=== PATIENT | female | born 1990 | race African-American/Black ===

== ENCOUNTER 2020-07-29 11:58 | Emergency (ER) | payer OTHER ==
[~2020-07-29] VITALS: Ht 175.3 cm; Wt 54.0 kg
[2020-07-29 12:14] LABS: BILIRUBIN,URINE NEGATIVE (NEG); CLARITY,URINE CLEAR; COLOR,URINE YELLOW; NITRITE,URINE NEGATIVE (NEG); PROTEIN,URINE NEGATIVE (NEG-TRACE); UROBILINOGEN,URINE 0.2 mg/dL (0.2 mg/dL)
[2020-07-29 12:15] VITALS: BP 113/65
[2020-07-29 12:27] LABS: BACTERIA,URINE FEW /HPF (0-FEW); RBC,URINE 0 /HPF (0-2)
--- NOTE | 2020-07-29 14:49 | RAD ---
STUDY: US TRANSVAGINAL HISTORY: Tenderness to palpation at the left adnexa. COMPARISON: None. TECHNIQUE: Pelvic ultrasound was performed with a transvaginal probe. FINDINGS: The uterus measures 7.5 x 3.7 x 2.9 cm. The endometrial echo measures 0.8 cm in thickness. The right ovary measures 3.7 x 2.7 x 2.5 cm and the left ovary 2.7 x 2.2 x 1.7 cm. No focal uterine parenchymal abnormality. No fluid along the endometrial canal or endometrial hyperva scularity. Doppler flow is maintained to both ovaries. Several follicles on both the right and left. Small simpl e cyst or dominant follicle on the right measuring up to 1.7 cm. No complex cyst or mass. Free pelvic fluid noted which appears simple, image 3. IMPRESSION: Simple appearing free pelvic fluid is most likely physiologic given patient age. The uterus, endometr ium and both ovaries are within normal limits. Doppler flow is maintained to both ovaries. Electronically signed by: ZEKE DIAZ MD (07/29/2020 2:47 PM) [id number]
--- NOTE | 2020-07-29 14:53 | ED.ADGEN ---
Past Medical History Past Medical History: No Pertinent History Past Surgical History: Other Additional Past Surgical Histo: LEEP Smoking Status: Current Every Day Smoker Alcohol Use: Occasionally General Adult EDM: Chief Complaint: ABDOMINAL PAIN HPI: HPI: Patient is a 29 year old female who presents emergency department complaints of lower left quadrant abdominal pain is worse in the morning for the last 4 days. Patient states that her last menstrual cycle was on June 30, 2020. She is unsure if she is . She denies any nausea, vomiting, or diarrhea. She reports her last bowel movement was a few days ago, she denies any dysuria, hematuria, increased urinary frequency, foul-smelling urine, irregular vaginal discharge, vaginal odor, vaginal bleeding. She denies any back pain, abdominal pain, fever, cough, body aches, fatigue, or shortness of breath. She currently rates pain a 4 out of 10 on the pain scale, she states that the pain is worse with palpation and movement, the only thing that helps to relieve the pain is laying still. Review of Systems: Review of Systems: Complete ROS is negative unless otherwise noted in HPI. Allergies: Allergies: Allergies Coded Allergies Type Severity Reaction Last Updated Verified Sulfa (Sulfonamide Antibiotics) Allergy Unknown 07/29/20 Yes Physical Exam: PE: Constitutional: Well developed, well nourished, no acute distress, non-toxic appearance. [] HENT: Normocephalic, atraumatic, bilateral external ears normal, nose normal. [] Eyes: PERRLA, EOMI, conjunctiva normal, no discharge. [] Neck: Normal range of motion, no stridor. [] Cardiovascular:Heart rate regular rhythm Lungs & Thorax: Respirations even and unlabored, no retractions, no respiratory distress Abdomen: soft, lower left quadrant tenderness to palpation, no palpable mass, no rebound tenderness, no guarding, no suprapubic tenderness Back: No CVA tenderness Skin: Warm, dry, no erythema, no rash. [] Extremities: No cyanosis, ROM intact, no edema. [] Neurologic: Alert and oriented X 3, normal motor, normal sensory, no focal deficits noted. [] Psychologic: Affect normal, judgement normal, mood normal. [] Current Patient Data: Labs: Laboratory Tests Test 07/29/20 12:01 07/29/20 12:08 Urine Collection Type Unknown Urine Color Yellow Urine Clarity Clear Urine pH 7.0 (<5.0-8.0) Urine Specific [place] 1.010 (1.000-1.030) Urine Protein Negative mg/dL (NEG-TRACE) Urine Glucose (UA) Negative mg/dL (NEG) Urine Ketones (Stick) Negative mg/dL (NEG) Urine Blood Negative (NEG) Urine Nitrite Negative (NEG) Urine Bilirubin Negative (NEG) Urine Urobilinogen Dipstick 0.2 mg/dL (0.2 mg/dL) Urine Leukocyte Esterase Trace (NEG) Urine RBC 0 /HPF (0-2) Urine WBC 1-4 /HPF (0-4) Urine Squamous Epithelial Cells Mod /LPF Urine Bacteria Few /HPF (0-FEW) POC Urine HCG, Qualitative Hcg negative (Negative) Vital Signs: Vital Signs Date Time Temp Pulse Resp B/P (MAP) Pulse Ox O2 Delivery O2 Flow Rate FiO2 07/29/20 12:15 98.8 61 16 113/65 (81) 98 Room Air 98.8 EKG: EKG: [] Heart Score: C/O Chest Pain: No Radiology/Procedures: Radiology/Procedures: PROCEDURE: TRANSVAGINAL STUDY: US TRANSVAGINAL HISTORY: Tenderness to palpation at the left adnexa. COMPARISON: None. TECHNIQUE: Pelvic ultrasound was performed with a transvaginal probe. FINDINGS: The uterus measures 7.5 x 3.7 x 2.9 cm. The endometrial echo measures 0.8 cm in thickness. The right ovary measures 3.7 x 2.7 x 2.5 cm and the left ovary 2.7 x 2.2 x 1.7 cm. No focal uterine parenchymal abnormality. No fluid along the endometrial canal or endometrial hypervascularity. Doppler flow is maintained to both ovaries. Several follicles on both the right and left. Small simple cyst or dominant follicle on the right measuring up to 1.7 cm. No complex cyst or mass. Free pelvic fluid noted which appears simple, image 3. IMPRESSION: Simple appearing free pelvic fluid is most likely physiologic given patient age. The uterus, endometrium and both ovaries are within normal limits. Doppler flow is maintained to both ovaries. Electronically signed by: ZEKE DIAZ MD (07/29/2020 2:47 PM) [id number] DICTATED and SIGNED BY: ZEKE DIAZ MD PROCEDURE: ABDOMEN SUPINE & UPRIGHT Two-view abdomen radiographs 07/29/2020 CLINICAL HISTORY: Constipation. Abdominal/pelvic pain. Supine and erect AP digital radiographs of the abdomen/pelvis were obtained. The lung bases are clear. The abdominal bowel gas pattern is nonobstructive. A moderate amount of stool is seen involving the descending and sigmoid colon. No free air is seen. No radiopaque calculus is noted. The osseous structures are grossly intact. IMPRESSION: Nonobstructive bowel gas pattern. Electronically signed by: Noe Chambers MD (07/29/2020 3:27 PM) [id number] Course & Med Decision Making: Course & Med Decision Making Pertinent Labs and Imaging studies reviewed. (See chart for details) 29-year-old female presents emergency department with complaints of left lower pelvic pain for the last 4 days. Pelvic ultrasound revealed no acute findings, normal-appearing ovaries. There was some pelvic free fluid present. X-ray of the patient's abdomen revealed a normal bowel gas pattern, no obstruction or constipation. I advised the patient that her urine test was negative. UA was unremarkable, not concerning for urinary tract infection as the patient denied any symptoms. Advised the patient to follow-up with her CLINICAL ACADEMIC ALLERGIST about her regular periods, her symptoms may be related to PMS. Patient was instructed to return to the ER if her symptoms worsened or fever develop. May take T ylenol or ibuprofen as needed for pain. Patient verbalized an understanding of home care, medications, follow-up, and return to ED instructions and was in agreement with the plan of care, she left prior to written instructions being provided. Anshu Disclaimer: Anshu Disclaimer: This electronic medical record was generated, in whole or in part, using a voice recognition dictation system. Departure Departure Impression: Primary Impression: Pelvic pain Disposition: HOME / SELF CARE / HOMELESS Condition: STABLE Referrals: NO PCP (PCP) CARINE FATIMA MD Patient Instructions: Pelvic Pain, Female, [id number] Additional Instructions: Take Tylenol or ibuprofen as needed for pain. Follow-up with your CLINICAL ACADEMIC ALLERGIST about irregular periods, your symptoms may be related to PMS. Return to the ER if symptoms worsen or fever develops. BRIDGET MARIE APRN July 29, 2020 14:53
--- NOTE | 2020-07-29 15:30 | RAD ---
Two-view abdomen radiographs 07/29/2020 CLINICAL HISTORY: Constipation. Abdominal/pelvic pain. Supine and erect AP digital radiographs of the abdomen/pelvis were obtained. The lung bases are clear . The abdominal bowel gas pattern is nonobstructive. A moderate amount of stool is seen involving the descending and sigmoid colon. No free air is seen. No radiopaque calculus is noted. The osseous stru ctures are grossly intact. IMPRESSION: Nonobstructive bowel gas pattern. Electronically signed by: Noe Chambers MD (07/29/2020 3:27 PM) [id number]
== END 2020-07-29 15:30 | disposition left against medical advice (07) ==
LOC: ER 11:58
DX: R10.2 Pelvic and perineal pain (principal); F17.200 Nicotine dependence, unspecified, uncomplicated; Z88.2 Allergy status to sulfonamides
CPT/HCPCS: 74021; 76830; 81001; 81025; 87086; 99285-25

== ENCOUNTER 2021-04-03 15:43 | Emergency (ER) | payer OTHER ==
[~2021-04-03] VITALS: Ht 175.3 cm; Wt 54.1 kg
[2021-04-03 15:48] VITALS: BP 118/74
[2021-04-03 16:07] LABS: BILIRUBIN,URINE NEGATIVE (NEG); CLARITY,URINE CLEAR; COLOR,URINE YELLOW; NITRITE,URINE NEGATIVE (NEG); PROTEIN,URINE NEGATIVE (NEG-TRACE); UROBILINOGEN,URINE 0.2 mg/dL (0.2 mg/dL)
[2021-04-03] MEDS: cefTRIAXone IM 500 MG VIAL. IM ONE (16:16)
--- NOTE | 2021-04-03 16:16 | PHYS DOC ---
Past Medical History Past Medical History: No Pertinent History Past Surgical History: Other Additional Past Surgical Histo: LEEP, RECONSTRUCTION RIGHT KNEE Smoking Status: Current Every Day Smoker Alcohol Use: Occasionally General Adult EDM: Chief Complaint: SEXUALLY TRANSMITTED DISEASE HPI: HPI: Patient is a 30 year female who presents with states that her boyfriend called her and told her that he has gonorrhea. She states that she does not have vaginal discharge, vaginal itching, vaginal irritation, pain with urination, abdominal pain, nausea, vomiting, fever, back pain. Has a history of smoking, right knee reconstruction and LEEP procedure Review of Systems: Review of Systems: Constitutional: Denies fever or chills. [] Eyes: Denies change in visual acuity. [] HENT: Denies nasal congestion or sore throat. [] Respiratory: Denies cough or shortness of breath. [] Cardiovascular: Denies chest pain or edema. [] GI: Denies abdominal pain, nausea, vomiting, bloody stools or diarrhea. [] : Denies dysuria. + STD exposure [] Musculoskeletal: Denies back pain or joint pain. [] Integument: Denies rash. [] Neurologic: Denies headache, focal weakness or sensory changes. [] Endocrine: Denies polyuria or polydipsia. [] Lymphatic: Denies swollen glands. [] Psychiatric: Denies depression or anxiety. [] Heart Score: C/O Chest Pain: No Current Medications: Current Medications Medications (Trade) Dose Ordered Sig/Gifty Start Time Stop Time Status Last Admin Dose Admin Ceftriaxone Sodium (Rocephin Im) 500 mg 1X ONCE 04/03/21 16:15 04/03/21 16:16 Allergies: Allergies: Allergies Coded Allergies Type Severity Reaction Last Updated Verified Sulfa (Sulfonamide Antibiotics) Allergy Unknown 07/29/20 Yes Physical Exam: PE: Constitutional: Well developed, well nourished, no acute distress, non-toxic ryan earance. [] HENT: Normocephalic, atraumatic, bilateral external ears normal, oropharynx moist, no oral exudates, nose normal. [] Eyes: PERRLA, EOMI, conjunctiva normal, no discharge. [] Neck: Normal range of motion, no tenderness, supple, no stridor. [] Cardiovascular:Heart rate regular rhythm, no murmur [] Lungs & Thorax: Bilateral breath sounds clear to auscultation [] Abdomen: Bowel sounds normal, soft, no tenderness, no masses, no pulsatile masses. [] Skin: Warm, dry, no erythema, no rash. [] Back: No tenderness, no CVA tenderness. [] Extremities: No tenderness, no cyanosis, no clubbing, ROM intact, no edema. [] Neurologic: Alert and oriented X 3, normal motor function, normal sensory function, no focal deficits noted. [] Psychologic: Affect normal, judgement normal, mood normal. [] Normal physical exam Current Patient Data: Labs: Laboratory Tests Test 04/03/21 16:02 POC Urine HCG, Qualitative Hcg negative (Negative) Vital Signs: Vital Signs Date Time Temp Pulse Resp B/P (MAP) Pulse Ox O2 Delivery O2 Flow Rate FiO2 04/03/21 15:48 98.2 79 16 118/74 (89) 97 Room Air 98.2 EKG: EKG: [] Radiology/Procedures: Radiology/Procedures: [] Course & Med Decision Making: Course & Med Decision Making Pertinent Labs and Imaging studies reviewed. (See chart for details) See HPI. Alert and oriented x4. Ambulatory steady gait. Speaks in full clear sentences. Skin pink warm and dry. Abdomen is soft and nontender. Afebrile. Patient states she would like to be treated for gonorrhea and chlamydia today. She is educated that she will not have results for her gonorrhea or chlamydia for 48 hours and she will only be called if something is positive. Patient wet prep shows bacterial vaginosis. [] Anshu Disclaimer: Anshu Disclaimer: This electronic medical record was generated, in whole or in part, using a voice recognition dictation system. Departure Departure Impression: Primary Impression: Bacterial vaginosis Additional Impression: Concern about STD in female without diagnosis Disposition: HOME / SELF CARE / HOMELESS Condition: STABLE Referrals: NO PCP (PCP) Patient Instructions: Bacterial Vaginosis, Sexually Transmitted Disease Additional Instructions: Follow-up with a plisse machine operator helper or your primary care provider if needed. Refrain from sex until either having negative result in 48 hours or 10 days after you have been treated. Take medication with food and as prescribed. Scripts Doxycycline Hyclate (DOXYCYCLINE HYCLATE) 100 Mg Capsule 1 CAP PO BID, #14 CAP Prov: BINA VILLATORO APRN 04/03/21 Metronidazole (METRONIDAZOLE) 500 Mg Tablet 1 TAB PO BID for 7 Days, #14 TAB 0 Refills Prov: BINA VILLATORO APRN 04/03/21 BINA VILLATORO APRN Apr 03, 2021 16:16
[2021-04-03 16:17] LABS: BACTERIA,URINE FEW /HPF (0-FEW)
[2021-04-03 16:18] LABS: RBC,URINE 0 /HPF (0-2)
[2021-04-03] MEDS ORDERED: METR-34 PO (16:35)
[2021-04-03] MEDS ORDERED: DOXY100C3 PO (16:35)
[2021-04-04 17:14] LABS: GC PROBE Negative (Negative)
== END 2021-04-03 16:42 | disposition home or self-care (01) ==
LOC: ER 15:43
DX: N76.0 Acute vaginitis (principal); B96.89 Other specified bacterial agents as the cause of diseases classified elsewhere; F17.200 Nicotine dependence, unspecified, uncomplicated; Z88.2 Allergy status to sulfonamides
CPT/HCPCS: 81001; 81025; 87086; 87491; 87591; 96372; 99283; J0696; Q0111